=== PATIENT | female | born 1990 | race Caucasian/White ===

== ENCOUNTER 2024-01-05 12:40 | Emergency (ER) | payer OTHER, SELFPAY ==
--- NOTE | ~2024-01-05 | US_ITS ---
EXAMINATION: US OBSTETRICAL ULTRASOUND CLINICAL INFORMATION: 5 weeks with heavy vaginal bleeding COMPARISON: None available. LMP: 11/14/2023. Gestational age by maternal dates is 7 weeks 3 days. Estimated date of delivery by maternal dates is 08/20/2024. TECHNIQUE: Only transabdominal imaging was performed. The patient refused endovaginal imaging FINDINGS: A gestational sac is not seen. There is an anteverted uterus measuring 8.1 x 4.2 x 5.9 cm. The endometrium appears normal. No fluid is seen in the endometrial canal. Right ovary measures 2.4 x 1.4 x 1.7 cm and appears normal. Left ovary measures 1.8 x 1.9 x 1.9 cm and appears normal. No free fluid present in the cul-de-sac. US/US OB <= 14 weeks fetus IMPRESSION: No evidence of an intrauterine . There is no fluid in the endometrial canal and no evidence to suggest an ectopic . The exam is limited because of lack of endovaginal access.
--- NOTE | ~2024-01-05 | XR_ITS ---
EXAMINATION: XR LUMBOSACRAL SPINE CLINICAL INFORMATION: Back pain worse on right COMPARISON: None available. TECHNIQUE: Three views of the lumbosacral spine. FINDINGS: The vertebral bodies and posterior elements are normal. The disc spaces are preserved and the vertebral alignment is normal. The paraspinal soft tissues are normal. Surgical clips in the upper abdomen XR/XR lumbar spine 2-3V IMPRESSION: Unremarkable examination.
--- NOTE | 2024-01-05 12:43 | ECG_ITS ---
Test Reason : chest pain Blood Pressure : / mmHG Vent. Rate : 064 BPM Atrial Rate : 064 BPM P-R Int : 150 ms QRS Dur : 090 ms QT Int : 404 ms P-R-T Axes : 042 034 019 degrees QTc Int : 416 ms Normal sinus rhythm with sinus arrhythmia Normal ECG No previous ECGs available Referred By: Torrie Forman Electronically Signed By:GONZALO ORLANDO MD
[2024-01-05 12:51] VITALS: BP 161/99; PULSE 76; RESP 18; TEMP 37; O2SAT 99; BMI 32.6
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
[2024-01-05 13:36] LABS: MANUAL DIFF FLAG NO
[2024-01-05 13:39] LABS: Basophils Percent Auto 0.4 % (0-2); Eosinophils Percent Auto 0.8 % (0-4); Hematocrit 36.2 % (37.0-47.0); Hemoglobin 11.8 g/dl (12.0-16.0); Imm Gran Abs Auto 0.02 X10*3/uL (0.00-0.03); Imm Gran Pct Auto 0.4 % (0.0-0.4); Lymphocytes Absolute Auto 1.7 X10*3/uL (1.2-4.9); Lymphocytes Percent Auto 34.8 % (20-40); Mean Corpuscular HGB Conc 32.6 g/dl (31.0-35.0); Mean Corpuscular Hemoglobin 26.6 pg (27.0-33.0); Mean Corpuscular Volume 81.5 fL (80.0-98.0); Mean Platelet Volume 10.3 fL (9.4-12.3); Monocytes Absolute Auto 0.3 X10*3/uL (0.1-1.2); Monocytes Percent Auto 5.9 % (2-11); Neutrophils Absolute Auto 2.8 x10*3/uL (2.0-8.3); Neutrophils Percent Auto 57.7 % (45-73); Platelet Count 338 X10*3/uL (160-400); Red Blood Count 4.44 X10*6/uL (4.20-5.50); Red Cell Distribution Width 13.6 % (11.0-16.0); White Blood Count 4.9 X10*3/uL (4.8-10.8)
[2024-01-05 13:43] LABS: Prothrombin Time 11.8 SEC (11.1-13.3)
[2024-01-05 13:49] LABS: Appearance Urine Clear; Color Urine Yellow; Glucose Urine UA Negative (Negative); Leukocyte Esterase Urine Negative (Negative); Nitrite Urine Negative (Negative); PH 7.5 (5.0-9.0); Specific Gravity - Urine 1.015 (1.005-1.025); Urine Blood Negative (Negative); Urine Ketones Negative (Negative); Urine Protein Negative (Neg-Trace)
[2024-01-05 13:50] LABS: UPreg QC Valid YES; Urine Pregnancy NEGATIVE (NEGATIVE)
[2024-01-05 13:54] LABS: Alanine Aminotransferase 9 U/L (0-31); Albumin Level 4.5 g/dL (3.5-5.0); Alkaline Phosphatase 72 U/L (39-117); Anion Gap 11 (12-20); Aspartate Amino Transferase 16 U/L (5-31); Bilirubin Total 0.2 mg/dL (0.0-1.0); Blood Urea Nitrogen 14 mg/dL (9-16); Calcium 9.6 mg/dL (8.4-10.2); Carbon Dioxide 27 mmol/L (22-29); Chloride 106 mmol/L (96-108); Creatinine Clr Calc Pharmacy 120.4; Estimated Glomerular Filt Rate > 60; Glucose Random 74 mg/dL (60-115); Magnesium 2.2 mg/dL (1.6-2.6); Sodium 140 mmol/L (135-145); Total Protein 7.6 g/dL (6.5-8.0)
[2024-01-05 14:01] LABS: HCG Quantitative 4 mIU/mL
[2024-01-05 14:02] LABS: Troponin-I High Sensitivity < 2.7 ng/L (<3.5-17.0)
[2024-01-05 20:15] VITALS: BP 156/96; PULSE 60; RESP 20; TEMP 36.6; O2SAT 98
[2024-01-05] MEDS: Ketorolac Tromethamine 30 MG/ML VIAL IM (21:39)
[2024-01-05] MEDS: predniSONE 20 MG TABLET 40 MG PO (21:40)
[2024-01-05] MEDS: Cyclobenzaprine HCl 10 MG TABLET PO (21:40)
[2024-01-05 23:04] VITALS: BP 135/70; PULSE 63; RESP 18; TEMP 37.2; O2SAT 98
[2024-01-05 23:10] VITALS: BP 0/0; PULSE 0; RESP 0; TEMP -17.7; TEMP 0; O2SAT 0
== END 2024-01-05 23:12 | disposition home or self-care (01) ==
PROVIDERS: Physician Assistant Medical; Emergency Provider Emergency Medicine; PCP Internal Medicine
DX: Z04.1 Encounter for examination and observation following transport accident (principal); M54.16 Radiculopathy, lumbar region; M54.50 Low back pain, unspecified; R07.9 Chest pain, unspecified; N93.9 Abnormal uterine and vaginal bleeding, unspecified; Z32.02 Encounter for pregnancy test, result negative
CPT/HCPCS: 36415; 72100; 76801; 80053; 81003; 81025; 83735; 84484; 84702; 85025; 85610; 93005; 99285; J1885

== ENCOUNTER → 2024-01-05 12:43 | Outpatient (BNV) | payer OTHER, SELFPAY | PROVIDERS: Emergency Provider Emergency Medicine; PCP Internal Medicine; Visit Provider Internal Medicine Cardiovascular Disease | DX: I49.9 Cardiac arrhythmia, unspecified (principal) | CPT/HCPCS: 93010 ==

== ENCOUNTER 2024-05-17 22:27 | Emergency (ER) | payer OTHER, SELFPAY ==
--- NOTE | 2024-05-17 | ECG_ITS ---
Test Reason : CP Blood Pressure : / mmHG Vent. Rate : 066 BPM Atrial Rate : 066 BPM P-R Int : 150 ms QRS Dur : 092 ms QT Int : 400 ms P-R-T Axes : 045 038 025 degrees QTc Int : 419 ms Normal sinus rhythm Normal ECG When compared with ECG of 05-JAN-2024 12:44, No significant change was found Referred By: Generic ED Physician Electronically Signed By:ABIOLA ANTONIO
[2024-05-17 22:40] VITALS: BP 142/88; PULSE 67; RESP 18; TEMP 36.9; O2SAT 98; BMI 33.1
--- NOTE | 2024-05-17 22:40 | MHC.EDTECH ---
Patient brought into triage area,EKG taken per order and signed by provider,labs drawn and sent to lab.
[2024-05-17 22:46] LABS: MANUAL DIFF FLAG NO
[2024-05-17 22:48] LABS: Basophils Percent Auto 0.2 % (0-2); Eosinophils Absolute Auto 0.2 X10*3/uL (0.0-0.4); Hematocrit 34.7 % (37.0-47.0); Hemoglobin 11.3 g/dl (12.0-16.0); Imm Gran Abs Auto 0.01 X10*3/uL (0.00-0.03); Imm Gran Pct Auto 0.2 % (0.0-0.4); Lymphocytes Absolute Auto 1.9 X10*3/uL (1.2-4.9); Lymphocytes Percent Auto 32.7 % (20-40); Mean Corpuscular HGB Conc 32.6 g/dl (31.0-35.0); Mean Corpuscular Hemoglobin 25.6 pg (27.0-33.0); Mean Corpuscular Volume 78.5 fL (80.0-98.0); Monocytes Absolute Auto 0.5 X10*3/uL (0.1-1.2); Monocytes Percent Auto 8.8 % (2-11); Neutrophils Absolute Auto 3.2 x10*3/uL (2.0-8.3); Neutrophils Percent Auto 54.1 % (45-73); Platelet Count 350 X10*3/uL (160-400); Red Blood Count 4.42 X10*6/uL (4.20-5.50); Red Cell Distribution Width 13.9 % (11.0-16.0); White Blood Count 5.8 X10*3/uL (4.8-10.8)
--- NOTE | 2024-05-17 22:51 | ED.GENADULT ---
HPI - General Adult General Chief complaint: General Medical Stated complaint: Chest pain Time Seen by Provider: 05/17/24 22:51 Source: patient Mode of arrival: ambulatory Limitations: no limitations History of Present Illness ED Provider: HPI narrative: Patient with multiple complaints complains of itching all over the body for several months been seen by camper assembler had the lab workup done pending also complaining of palpitation episode lasting only for few minutes also been feeling tired patient denied any depression denied any sleeping problem but patient's drinks increased amount of caffeine no acute medical complaints at this time Related Data Previous Rx's ?Medication ?Instructions ?Recorded cyclobenzaprine 5 mg tablet 5 mg PO TID PRN muscle spasm #10 01/05/24 tabs lidocaine 5 % topical patch 1 patch topical DAILY #15 ea 01/05/24 prednisone 20 mg tablet 40 mg (2 x 20 mg) PO DAILY #8 tabs 01/05/24 montelukast 10 mg tablet 10 mg PO BEDTIME #30 tabs 05/17/24 (Singulair) Allergies Allergy/AdvReac Type Severity Reaction Status Date / Time No Known Allergies Allergy Verified 05/17/24 22:50 Review of Systems Review of Systems: Yes all other systems are reviewed and are negative PMFSH Social History Social History Smoked in Last 30 Days: No Use of substances other than those prescribed or required for medical reasons: Yes Advance Directives: No Advance Directives Information Provided: Yes Physical Exam ED Vital Signs: Vital Signs - 24 hr 05/17/24 22:40 05/17/24 22:58 05/18/24 00:15 Temperature 98.4 F 97.6 F 97.6 F Pulse Rate 67 68 68 Respiratory Rate 18 16 16 Blood Pressure 142/88 H 162/87 H 162/87 H Pulse Oximetry 98 100 100 Oxygen Delivery Method Room Air Room Air Room Air BMI result Body Mass Index 33.1 Appearance: Alert. Oriented X3. No acute distress. Eyes: PERRLA, No Nystagmus ENT: Pharynx normal. Oral Mucosa moist Neck: Normal inspection. Neck supple. CVS: Normal heart rate and rhythm. Pulses normal. Respiratory: No respiratory distress. Equal air entry bilateral, no wheezing/rales/rhonchi Abdomen: Soft and nontender. Bowel sounds are present, no mass palpable, no CVA tenderness Skin: Skin warm and dry. Normal skin color. Normal skin turgor. Extremities: No lower extremity edema. No calf tenderness Neuro: Oriented X 3. No motor deficit. No sensory deficit.No cerebellar signs , cranial nerves II-XII intact Medical Decision Making Lab Data 05/17/24 22:39 05/17/24 22:39 Labs: Lab Results 05/17/24 Range/Units 22:39 WBC 5.8 (4.8-10.8) X10*3/uL RBC 4.42 (4.20-5.50) X10*6/uL Hgb 11.3 L (12.0-16.0) g/dl Hct 34.7 L (37.0-47.0) % MCV 78.5 L (80.0-98.0) fL MCH 25.6 L (27.0-33.0) pg MCHC 32.6 (31.0-35.0) g/dl RDW 13.9 (11.0-16.0) % Plt Count 350 (160-400) X10*3/uL MPV 10.0 (9.4-12.3) fL Immature Gran % (Auto) 0.2 (0.0-0.4) % Neut % (Auto) 54.1 (45-73) % Lymph % (Auto) 32.7 (20-40) % [place] % (Auto) 8.8 (2-11) % Eos % (Auto) 4.0 (0-4) % Baso % (Auto) 0.2 (0-2) % Lymph # (Auto) 1.9 (1.2-4.9) X10*3/uL [place] # (Auto) 0.5 (0.1-1.2) X10*3/uL Eos # (Auto) 0.2 (0.0-0.4) X10*3/uL Baso # (Auto) 0.0 (0.0-0.2) X10*3/uL Abs Immat Gran (auto) 0.01 (0.00-0.03) X10*3/uL Absolute Neuts (auto) 3.2 (2.0-8.3) x10*3/uL Absolute Nucleated RBC 0.000 (0.0-0.012) X10*3/uL Nucleated RBC % (auto) 0.0 (0.0-0.2) /100WBC Sodium 140 (135-145) mmol/L Potassium 4.0 (3.3-5.1) mmol/L Chloride 110 H (96-108) mmol/L Carbon Dioxide 23 (22-29) mmol/L Anion Gap 11 L (12-20) BUN 19 H (9-16) mg/dL Creatinine 0.76 (0.5-1.4) mg/dL Estim Creat Clear Calc 112.7 Estimated GFR > 60 Fasting Glucose 89 (60-99) mg/dL Calcium 8.9 D (8.4-10.2) mg/dL Total Bilirubin 0.2 (0.0-1.0) mg/dL AST 17 (5-31) U/L ALT 13 (0-31) U/L Alkaline Phosphatase 64 (39-117) U/L Troponin I High Sens < 2.7 (<3.5-17.0) ng/L Total Protein 7.4 (6.5-8.0) g/dL Albumin 4.1 (3.5-5.0) g/dL TSH 2.19 (0.32-4.0) uIU/mL Beta HCG, Quant < 2 mIU/mL Discharge Plan Discharge Clinical Impression: Intrinsic (allergic) eczema, Heart palpitations Patient Disposition: Home, Self-Care Instructions: Heart Palpitations (ED), Eczema (ED) Additional Instructions: Follow up with your camper assembler for further management for your urticarial rash You may start Singulair 10 mg every night to avoid the rash and itching Decreased caffeine intake Follow with your PCP Prescriptions: New montelukast [Singulair] 10 mg tablet 10 mg PO BEDTIME Qty: 30 0RF No Action cyclobenzaprine 5 mg tablet 5 mg PO TID PRN (Reason: muscle spasm) Qty: 10 0RF prednisone 20 mg tablet 40 mg PO DAILY Qty: 8 0RF lidocaine 5 % adhesive patch,medicated 1 patch topical DAILY Qty: 15 0RF Rx Instructions: leave on most painful area for up to 12 hrs Interventions: ED Discharge Assessment Last Done: 05/18/24 00:15 Discharge Date/Time: 05/18/24 00:15 Print Language: Martiniquais
[2024-05-17 22:58] VITALS: BP 162/87; PULSE 68; RESP 16; TEMP 36.4; O2SAT 100
[2024-05-17 23:19] LABS: Alanine Aminotransferase 13 U/L (0-31); Albumin Level 4.1 g/dL (3.5-5.0); Alkaline Phosphatase 64 U/L (39-117); Anion Gap 11 (12-20); Aspartate Amino Transferase 17 U/L (5-31); Bilirubin Total 0.2 mg/dL (0.0-1.0); Blood Urea Nitrogen 19 mg/dL (9-16); Calcium 8.9 mg/dL (8.4-10.2); Carbon Dioxide 23 mmol/L (22-29); Chloride 110 mmol/L (96-108); Creatinine Clr Calc Pharmacy 112.7; Estimated Glomerular Filt Rate > 60; Glucose Fasting 89 mg/dL (60-99); HCG Quantitative < 2 mIU/mL; Sodium 140 mmol/L (135-145); Total Protein 7.4 g/dL (6.5-8.0)
[2024-05-17 23:20] LABS: Troponin-I High Sensitivity < 2.7 ng/L (<3.5-17.0)
[2024-05-18 00:13] LABS: Thyroid Stimulating Hormone 2.19 uIU/mL (0.32-4.0)
[2024-05-18 00:15] VITALS: BP 162/87; PULSE 68; RESP 16; TEMP 36.4; O2SAT 100
== END 2024-05-18 00:15 | disposition home or self-care (01) ==
PROVIDERS: Emergency Provider Internal Medicine
DX: R00.2 Palpitations (principal); L20.84 Intrinsic (allergic) eczema; Z79.899 Other long term (current) drug therapy
CPT/HCPCS: 36415; 80053; 84443; 84484; 84702; 85025; 93005; 99283; 99284

== ENCOUNTER → 2024-05-17 22:33 | Outpatient (BNV) | payer OTHER, SELFPAY | PROVIDERS: Emergency Provider Internal Medicine; Visit Provider Internal Medicine | DX: R07.9 Chest pain, unspecified (principal) | CPT/HCPCS: 93010 ==

== ENCOUNTER 2024-11-12 20:07 | Emergency (ER) | payer OTHER, SELFPAY ==
[2024-11-12 20:12] VITALS: BP 149/87; PULSE 102; RESP 18; TEMP 36.8; O2SAT 98; BMI 33.1
--- NOTE | 2024-11-12 20:14 | ED_ITS ---
[facility] - General Adult General Chief complaint: General Medical Stated complaint: right leg pain, itchy Time Seen by Provider: 11/12/24 20:59 Source: patient Mode of arrival: ambulatory Limitations: no limitations History of Present Illness ED Provider: [facility] narrative: Patient is here today with multiple concerns she is concerned that she has cramping of her right calf, this has been progressively getting worse, she states it wakes her up from sleep, she is not on control medications, no history of PEs, no recent surgeries or prolonged travels reported. Also she has had itchiness all over her body for about 6 months seen a manager marketing sales has had scabies treatment, there is no household infestation reported however. Related Data Previous Rx's ?Medication ?Instructions ?Recorded cyclobenzaprine 5 mg tablet 5 mg PO TID PRN muscle spasm #10 01/05/24 tabs lidocaine 5 % topical patch 1 patch topical DAILY #15 ea 01/05/24 prednisone 20 mg tablet 40 mg (2 x 20 mg) PO DAILY #8 tabs 01/05/24 montelukast 10 mg tablet 10 mg PO BEDTIME #30 tabs 05/17/24 (Singulair) Allergies Allergy/AdvReac Type Severity Reaction Status Date / Time No Known Allergies Allergy Verified 11/12/24 20:14 Review of Systems 2 Constitutional: Constitutional: Reports as per [facility] Social History Social History Advance Directives: No Advance Directives Information Provided: No Physical Exam ED Vital Signs: Vital Signs - 24 hr 11/12/24 20:12 Temperature 98.3 F Pulse Rate 102 H Respiratory Rate 18 Blood Pressure 149/87 H Pulse Oximetry 98 Oxygen Delivery Method Room Air BMI result Body Mass Index 33.1 Const Other: * Gen: ?Overall well-appearing patient * Resp: ?No wheezing rales rhonchi no stridor moving air well * MSK: FROM, strength 5/5 all extremities, there were no edema of the calves, distal pulses intact * Skin: No urticaria, no rashes, few areas of bruising she is not abnormal, no petechiae noted * Neuro: ?Alert and oriented x3, moving upper and lower extremities symmetrically, no obvious facial asymmetry noted Course Course Course Narrative: RME performed by Brittnee Pascal PA-C. Patient is a 34 year old assigned female at presenting to the emergency department with all body itching for which they treated her for scabies and now urticaria but she feels as though the urticaria diagnosis is incorrect. Patient also states that her right lower leg has been bothering her / waking her up randomly over the last few days. Detailed physical exam and review of systems are deferred to the auto driver. Labs ordered. Patient placed back in the waiting room pending room availability and results. Medical Decision Making Medical Decision Making MDM Narrative: Patient does drink caffeine, which can explain her cramps at night, we will discharge with recommendation of magnesium, vitamin-B complexes, skin hydration there is no evidence of ongoing infection, there is no evidence for scabies, no evidence for DVT did not feel further imaging such as ultrasound is indicated. She has a manager marketing sales involved in her care of the skin already. She has finished a course of steroids, medication for scabies she did not specify which ones, and takes Zyrtec occasionally Differential Diagnosis Differential Diagnoses: The differential diagnosis associated with the presentation includes Eczema, scabies, thrombocytopenia, DVT, cellulitis Lab Data 11/12/24 21:22 11/12/24 21:22 Labs: Lab Results 11/12/24 Range/Units 21:22 WBC 5.8 (4.8-10.8) X10*3/uL RBC 4.06 L (4.20-5.50) X10*6/uL Hgb 10.6 L (12.0-16.0) g/dl Hct 32.3 L (37.0-47.0) % MCV 79.6 L (80.0-98.0) fL MCH 26.1 L (27.0-33.0) pg MCHC 32.8 (31.0-35.0) g/dl RDW 13.5 (11.0-16.0) % Plt Count 264 (160-400) X10*3/uL MPV 10.1 (9.4-12.3) fL Immature Gran % (Auto) 0.3 (0.0-0.4) % Neut % (Auto) 65.4 (45-73) % Lymph % (Auto) 18.2 L (20-40) % Ransom % (Auto) 13.1 H (2-11) % Eos % (Auto) 2.8 (0-4) % Baso % (Auto) 0.2 (0-2) % Lymph # (Auto) 1.1 L (1.2-4.9) X10*3/uL Ransom # (Auto) 0.8 (0.1-1.2) X10*3/uL Eos # (Auto) 0.2 (0.0-0.4) X10*3/uL Baso # (Auto) 0.0 (0.0-0.2) X10*3/uL Abs Immat Gran (auto) 0.02 (0.00-0.03) X10*3/uL Absolute Neuts (auto) 3.8 (2.0-8.3) x10*3/uL Absolute Nucleated RBC 0.000 (0.0-0.012) X10*3/uL Nucleated RBC % (auto) 0.0 (0.0-0.2) /100WBC Sodium 140 (135-145) mmol/L Potassium 3.4 (3.3-5.1) mmol/L Chloride 105 (96-108) mmol/L Carbon Dioxide 26 (22-29) mmol/L Anion Gap 12 (12-20) BUN 15 (9-16) mg/dL Creatinine 0.58 (0.5-1.4) mg/dL Estim Creat Clear Calc 146.4 Estimated GFR > 60 Random Glucose 91 (60-115) mg/dL Calcium 9.1 (8.4-10.2) mg/dL Magnesium 1.9 (1.6-2.6) mg/dL Total Bilirubin 0.2 (0.0-1.0) mg/dL AST 20 (5-31) U/L ALT 15 (0-31) U/L Alkaline Phosphatase 63 (39-117) U/L Total Protein 7.3 (6.5-8.0) g/dL Albumin 4.2 (3.5-5.0) g/dL Urine Color Yellow Urine Appearance Clear Urine pH 5.5 (5.0-9.0) Ur Specific [place] >= 1.030 H (1.005-1.025) Urine Protein Trace (Neg-Trace) mg/dL Urine Glucose (UA) Negative (Negative) mg/dL Urine Ketones Trace (Negative) mg/dL Urine Blood Small (1+) H (Negative) Urine Nitrite Negative (Negative) Ur Leukocyte Esterase Negative (Negative) Urine RBC 6-10 H (0-2) /HPF Urine WBC 0-5 (0-5) /HPF Ur Squamous Epith Cells 6-10 (0-2) /HPF Urine Bacteria None Seen (None Seen) Hyaline Casts 0-2 (0-2) /LPF Discharge Plan Discharge Clinical Impression: Calf cramp, Itch of skin, Microcytic anemia Patient Disposition: Home, Self-Care Additional Instructions: As discussed with the you I would cut down on the amount of caffeine you are taking in, give it some time for the cramps to improve and I also recommend 400 mg of magnesium before bedtime, as far as for skin I recommend vitamin B complexes which includes biotin, making sure that you are cutting down on how much milk your drinking because milk sometimes is prone eczematous and causes allergies, sugar, but I recommend picking up Lac-Hydrin skin cream or some of the brain which is specifically a moisturizer. Also do not take showers that are too hot they can dry out the skin and cause itchiness and so your has been maybe right, try taking cooler showers. And as discussed I did not feel your presentation is consistent with a blood clot, or skin infection the, continue follow up with the PCP and manager marketing sales any other issues concerns come back to the ER. Your blood work also revealed what appears to be iron deficiency anemia, I recommend iron supplements. Prescriptions: No Action cyclobenzaprine 5 mg tablet 5 mg PO TID PRN (Reason: muscle spasm) Qty: 10 0RF prednisone 20 mg tablet 40 mg PO DAILY Qty: 8 0RF lidocaine 5 % adhesive patch,medicated 1 patch topical DAILY Qty: 15 0RF Rx Instructions: leave on most painful area for up to 12 hrs montelukast [Singulair] 10 mg tablet 10 mg PO BEDTIME Qty: 30 0RF Print Language: Angolan
--- OUTSIDE RECORDS SUMMARY | 2024-11-12 20:39 | XMS_ITS | Clinical Summary ---
Author Organization [address] Address [address] [place] [phone] Phone Care Team Providers Care Talking Books Library Clerk Name Role Phone Alona Garcia MD Primary Care Provider [phone] Allergies No known active allergies Medications ferrous sulfate 325 mg (65 mg iron) EC tablet Take 1 tablet (325 mg total) by mouth 3 (three) times a day with meals. Do not crush, chew, or split. 90 each 2 07/17/2024 Active cholecalciferol (Vitamin D3) 5,000 Units tablet Take 1 tablet (5,000 Units total) by mouth 1 (one) time each day. Active omega-3 fatty acids-fish oil (Fish OiL Extra Strength) 435-880 mg capsule Take by mouth. Active diphenhydrAMINE (BENADRYL) 25 mg capsule Take by mouth every 6 (six) hours if needed for itching. Active fexofenadine (QUENTIN) 180 mg tablet Take 1 tablet (180 mg total) by mouth 1 (one) time each day if needed (allergies) . 08/07/2024 Active Active Problems Problem Noted Date Diagnosed Date Class 1 obesity without seri ous comorbidity with body mass index (BMI) of 33.0 to 33.9 in adult 04/17/2024 Calculus of cystic duct with cholecystitis 04/05 Overview (04/17/2024): S/p lap rachele 04/17 Subclinical hyperthyroidism 06/04/2013 Encounters Date Type Department Care Team Description 10/23/2024 Telephone Adult Medicine [facility] [address] [place] [phone] Ashley Jackson MA Leg Pain 09/18/2024 Telephone Bariatric Surgery [address] [phone] Katharina Howe PA surgery (surgery) 08/28/2024 2:00 PM EDT Office Visit Bariatric Surgery [address] [phone] Katharina Howe PA Class 1 obesity due to excess calories without serious comorbidity with body mass index (BMI) of 33.0 to 33.9 in adult (Primary Dx) 08/24/2024 9:00 AM EDT Telemedicine Bariatric Surgery [address] [phone] Class 1 obesity without serious comorbidity with body mass index (BMI) of 33.0 to 33.9 in adult, unspecified obesity type (Primary Dx) from Last 3 Months Immunizations Name Administration Dates Next Due DTaP (Infanrix) 6wks to less than 7yo 03/23/1995 ,04/01/1994 [id number] (Pentacel) 2mo to less than 5yo 10/24/1991 Hepatitis B Pediatric (Enger ix B; Recombivax HB) to less than 20 yo 04/29/1996,06/09/1995,03/23/1995 IPV Inactivated polio (Ipol) 6wks and older 02/28,04/01/1994 MMR, measles mumps and rubel la Live (Priorix; M-M-R II) 12mo and older 11/20/2020,04/29/1996,10/24/1991 Td Tetanus diptheria (Tdvax) 7yo and older 09/27 Tdap Tetanus diptheria acell ular pertussis (Boostrix; Adacel) 7yo and older 11/16/2023,07/16/2009 Surgical History Surgery Date Site/Laterality Comments OTHER SURGICAL HISTORY 03/2019 PROCEDURE: LAPAROSCOPIC CHOLECYSTECT APPENDECTOMY 2017 PROCEDURE: DE APPENDECTOMY ABDOMINAL SURGERY 2021 PROCEDURE: HISTORICAL ABDOMINAL SURGERY; COMMENT: gastric sleeve by Dr. Luzma HASSAN ABDOMINOPLASTY 2013 PROCEDURE: HISTORICAL TUMMY TUMELANI Medical History Medical History Date Comments Essential hypertension 06/28/2017 DX:Essent ial hypertension Obesity (BMI 30-39.9) DX:Obesity (BMI 30-39.9) Family History Medical History Relation Name Comments Diabetes Mother Other: lupus Mother Relation Name Status Comments Brother Alive Father Alive Mother Alive Sister Alive Social History Tobacco Use Types Packs/Day Years Used Date Smoking Tobacco: Never Smokeless Tobacco: Never Tobacco Cessation:Counseling Given: Not Answered Alcohol Use Standard Drinks/Week Comments Yes 0 (1 standard drink = 0.6 oz pur e alcohol) Comments Unknown Sex and Gender Information Value Date Recorded Sex Assigned at Female 09/03/2024 9:09 AM EDT Legal Sex Female 2:06 AM EST Gender Identity Female 09/03/2024 9:09 AM EDT Sexual Orientation Not on file Obstetrics History Last Filed Vital Signs Vital Sign Reading Time Taken Comments Blood Pressure 167/115 08/28/2024 2:05 PM EDT Pulse 75 08/28/2024 2:05 PM EDT Temperature 36.3 ??C (97.4 ??F) 08/07/2024 9:48 AM ED T Respiratory Rate 14 08/07/2024 9:48 AM EDT Oxygen Saturation 98% 04/18/2024 9:53 AM EST Inhaled Oxygen Concentration - - Weight 88.7 kg (195 lb 9.6 oz) 08/28/2024 2:05 P M EDT Height 162.6 cm (5' 4 ) 08/28/2024 2:05 PM EDT Body Mass Index 33.57 08/28/2024 2:05 PM EDT Plan of Treatment Upcoming Encounters Date Type Department Care Team (Late st Contact Info) Description 11/21/2024 11:45 AM EDT Office Visit Bariatric Surgery - [place] [address] [facility] [address] [place] [phone] Katharina Howe PA [address] [facility] [address] [place] [address] 01/22/2025 2:30 PM EDT Office Visit Adult Medicine [address] [phone] Juan Awan PA 4 [place] [address] Health Maintenance Due Date Last Done Comments HPV Vaccines (3 - 3-dose series) 06/08/2012 03/16/2012, 01/04/2011 Hepatitis C Screening 05/02/2022 Social Influencers of Health Screening 05/02/2022 Cervical Cancer Screening: Pap Smear 11/25/2022 11/26/2019 COVID-19 Vaccine ( season) 2024 11/23/2021, 02/26/2021, 01/16/2021 Depression Screening 11/15/2024 11/16/2023 Influenza Vaccine (Season Ended) 2025 04/05/2023, 03/23/2022, 03/10/2018, Additional history exists Hypertension/CHF/CAD Annual BMP Blood Test 08/07/2025 08/07/2024, 07/11/2024, 04/14/2023 Cholesterol Screening (Lipid Panel) 07/11/2029 07/11/2024, 02/24/2022 DTaP,Tdap,and Td Vaccines (8 - Td or Tdap) 11/15/2033 11/16/2023, 11/14/2018, 07/16/2009, Additional history exists HIB Vaccines Completed 10/24/1991, 10/24/1991 IPV Vaccines Completed 03/23/1995, 07/1993, 10/24/1991 Hepatitis B Vaccines Completed 04/29/1996, 06/09/1995, 03/23/1995 HIV Screening Completed 07/18/2013 MMR Vaccines Completed 11/20/2020, 05/1995, 10/24/1991 Hepatitis A Vaccines Aged Out No long er eligible based on patient's age to complete this topic Meningococcal ACWY Vaccine Aged Out N o longer eligible based on patient's age to complete this topic Meningococcal B Vaccine Aged Out No l onger eligible based on patient's age to complete this topic Pneumococcal Vaccine: Pediatrics (0 to 5 Years) and At-Risk Patients (6 to 64 Years) Aged Out No longer eligible based on patient's age to complete this topic RSV Immunization Patients Under 20 months Aged Out No longer eligible based on patient's age to complete this topic Varicella Vaccines Aged Out No longer eligible based on patient's age to complete this topic Procedures Procedure Name Priority Date/Time Associated Diagnosis Comments COMPREHENSIVE METABOLIC PANEL Routine 08/07/2024 10:40 AM EDT Other fatigue LIPID PANEL WITH REFLEX TO DIRECT LDL Routine 07/11/2024 10:14 AM EST S/P gastric sleeve procedure DEPRESSION SCREENING Routine 11/16/2023 PAP SMEAR Routine 11/26/2019 HIV SCREENING Routine 07/18/2013 from Last 3 Months or Most Recently Relevant to Health Maintenance Results * Comprehensive metabolic panel (08/07/2024 10:40 AM EDT) Sodium 140 133 - 145 mmol/L LAB CHEMISTRY METHOD 08/07/2024 12:38 PM [facility] Potassium 4.4 3.5 - 5.5 mmol/L LAB CHEMISTRY METHOD 08/07/2024 12:38 PM [facility] Chloride 105 96 - 110 mmol/L LAB CHEMISTRY METHOD 08/07/2024 12:38 PM [facility] CO2 28 21 - 32 mmol/L LAB CHEMISTRY METHOD 08/07/2024 12:38 PM [facility] Anion Gap 7 3 - 11 LAB CHEMISTRY METHOD 08/07/2024 12:38 PM [facility] Glucose 85 70 - 100 mg/dL LAB CHEMISTRY METHOD 08/07/2024 12:38 PM [facility] BUN 18 5 - 25 mg/dL LAB CHEMISTRY METHOD 08/07/2024 12:38 PM [facility] Creatinine 0.72 0.50 - 1.10 mg/dL LAB CHEMISTRY METHOD 08/07/2024 12:38 PM [facility] eGFR 113 >=60 mL/min/1. 73m2 LAB CHEMISTRY METHOD 08/07/2024 12:38 PM [facility] Comment:Calculation based on the??Chronic Kidney Disease Epidemiology Collaboration (CKD-EPI) equation refit??without adjustment for race. BUN/Creatinine Ratio 25.0 LAB CHEMISTRY METHOD 08/07/2024 12:38 PM [facility] Calcium 9.6 8.5 - 10.5 mg/dL LAB CHEMISTRY METHOD 08/07/2024 12:38 PM [facility] AST (SGOT) 20 10 - 42 unit/L LAB CHEMISTRY METHOD 08/07/2024 12:38 PM [facility] ALT (SGPT) 28 10 - 60 unit/L LAB CHEMISTRY METHOD 08/07/2024 12:38 PM [facility] Alkaline Phosphatase 70 42 - 121 unit/L LAB CHEMISTRY METHOD 08/07/2024 12:38 PM [facility] Total Protein 7.9 6.0 - 8.0 g/dL LAB CHEMISTRY METHOD 08/07/2024 12:38 PM [facility] Albumin 3.9 3.2 - 5.0 g/dL LAB CHEMISTRY METHOD 08/07/2024 12:38 PM [facility] Total Bilirubin 0.4 0.0 - 1.4 mg/dL LAB CHEMISTRY METHOD 08/07/2024 12:38 PM [facility] Blood Venous blood specimen / Unknown Venipuncture / Unknown 08/07/2024 10:40 AM EDT 08/07/2024 10:40 AM EDT us Alona Garcia MD LAB BLOOD ORDERABLES Final Resul t [facility] [address] [place] [address], [place] [phone] * Lipid panel with reflex to direct LDL (07/11/2024 10:14 AM EST) Cholesterol 174 0 - 200 mg/dL LAB CHEMISTRY METHOD 07/11/2024 2:42 PM EST [facility] Triglycerides 115 0 - 150 mg/dL LAB CHEMISTRY METHOD 07/11/2024 2:42 PM EST [facility] HDL 74 >=40 mg/dL LAB CHEMISTRY METHOD 07/11/2024 2:42 PM EST [facility] LDL Calculated 77 0 - 100 mg/dL LAB CHEMISTRY METHOD 07/11/2024 2:42 PM EST [facility] VLDL Cholesterol Jay 23 mg/dL LAB CHEMISTRY METHOD 07/11/2024 2:42 PM EST [facility] Non HDL Chol. (LDL+VLDL) 100 <145 mg/dL LAB CHEMISTRY METHOD 07/11/2024 2:42 PM EST [facility] Chol/HDL Ratio 2.4 0.0 - 4.4 LAB CHEMISTRY METHOD 07/11/2024 2:42 PM EST [facility] Blood Venous blood specimen / Unknown Venipuncture / Unknown 07/11/2024 10:14 AM EST 07/11/2024 10:14 AM EST Valentina García MD LAB BLOOD ORDERABLES Fi nal Result [facility] [address] [place] [address], [place] [phone] * Depression Screening (11/16/2023) Pathologist [facility] Depression Screening abstracted Historical Provider HEALTH MAINTENANCE Final Result * Pap Smear (11/26/2019) Pathologist [facility] Pap smear no interpretation , abstracted Historical Provider HEALTH MAINTENANCE Final Result * HIV Screening (07/18/2013) HIV Screening abstracted us Historical Provider HEALTH MAINTENANCE Final Result from Last 3 Months or Most Recently Relevant to Health Maintenance Insurance [facility] Care Teams Talking Books Library Clerk Relationship Specialty Start Date End Date Alona Garcia MD [address] [place] [phone] PCP - General Internal Medicine 02/03/22
[2024-11-12 21:27] LABS: MANUAL DIFF FLAG NO
[2024-11-12 21:29] LABS: Basophils Percent Auto 0.2 % (0-2); Eosinophils Absolute Auto 0.2 X10*3/uL (0.0-0.4); Eosinophils Percent Auto 2.8 % (0-4); Hematocrit 32.3 % (37.0-47.0); Hemoglobin 10.6 g/dl (12.0-16.0); Imm Gran Abs Auto 0.02 X10*3/uL (0.00-0.03); Imm Gran Pct Auto 0.3 % (0.0-0.4); Lymphocytes Absolute Auto 1.1 X10*3/uL (1.2-4.9); Lymphocytes Percent Auto 18.2 % (20-40); Mean Corpuscular HGB Conc 32.8 g/dl (31.0-35.0); Mean Corpuscular Hemoglobin 26.1 pg (27.0-33.0); Mean Corpuscular Volume 79.6 fL (80.0-98.0); Mean Platelet Volume 10.1 fL (9.4-12.3); Monocytes Absolute Auto 0.8 X10*3/uL (0.1-1.2); Monocytes Percent Auto 13.1 % (2-11); Neutrophils Absolute Auto 3.8 x10*3/uL (2.0-8.3); Neutrophils Percent Auto 65.4 % (45-73); Platelet Count 264 X10*3/uL (160-400); Red Blood Count 4.06 X10*6/uL (4.20-5.50); Red Cell Distribution Width 13.5 % (11.0-16.0); White Blood Count 5.8 X10*3/uL (4.8-10.8)
[2024-11-12 21:30] LABS: Appearance Urine Clear; Color Urine Yellow; Glucose Urine UA Negative (Negative); Leukocyte Esterase Urine Negative (Negative); Nitrite Urine Negative (Negative); PH 5.5 (5.0-9.0); Specific Gravity - Urine >= 1.030 (1.005-1.025); UMIC TRIGGER UACC YES; Urine Blood Small (1+) (Negative); Urine Ketones Trace mg/dL (Negative); Urine Protein Trace mg/dL (Neg-Trace)
[2024-11-12 21:35] LABS: Bacteria Urine None Seen (None Seen); Hyaline Casts Urine 0-2 /LPF (0-2); WBC Urine 0-5 /HPF (0-5)
[2024-11-12 21:45] LABS: Alanine Aminotransferase 15 U/L (0-31); Albumin Level 4.2 g/dL (3.5-5.0); Alkaline Phosphatase 63 U/L (39-117); Anion Gap 12 (12-20); Aspartate Amino Transferase 20 U/L (5-31); Bilirubin Total 0.2 mg/dL (0.0-1.0); Blood Urea Nitrogen 15 mg/dL (9-16); Calcium 9.1 mg/dL (8.4-10.2); Carbon Dioxide 26 mmol/L (22-29); Chloride 105 mmol/L (96-108); Creatinine Clr Calc Pharmacy 146.4; Estimated Glomerular Filt Rate > 60; Glucose Random 91 mg/dL (60-115); Magnesium 1.9 mg/dL (1.6-2.6); Potassium 3.4 mmol/L (3.3-5.1); Sodium 140 mmol/L (135-145); Total Protein 7.3 g/dL (6.5-8.0)
[2024-11-12 21:54] LABS: HCG Quantitative < 2 mIU/mL
[2024-11-12 22:05] LABS: Influenza A PCR NEGATIVE (Negative); Influenza B PCR NEGATIVE (Negative); Resp Syncy Virus RNA Qual PCR NEGATIVE (Negative); SARS COV2 PCR INHOUSE NEGATIVE (Negative)
[2024-11-12 22:24] VITALS: BP 149/87; PULSE 102; RESP 18; TEMP 36.8; O2SAT 98
== END 2024-11-12 22:26 | disposition home or self-care (01) ==
PROVIDERS: Physician Assistant Medical; Emergency Provider Emergency Medicine
DX: R25.2 Cramp and spasm (principal); L29.9 Pruritus, unspecified; D50.9 Iron deficiency anemia, unspecified; Z03.818 Encounter for observation for suspected exposure to other biological agents ruled out
CPT/HCPCS: 0241U; 36415; 80053; 81001; 83735; 84702; 85025; 99282; 99283

== ENCOUNTER 2025-02-20 20:11 | Emergency (ER) | payer OTHER, SELFPAY ==
--- NOTE | ~2025-02-20 | CT_ITS ---
CLINICAL HISTORY: low back pain CT abdomen and pelvis without contrast Comparison: None provided Findings: CT abdomen: Lung bases are clear. No acute fractures. Ppst-zo-fakjxbdd degenerative disc disease at the lumbosacral junction. No aggressive bony lesions identified. Gallbladder is surgically absent. Postsurgical change of the stomach. No renal calculi identified. There is a questionable 2 mm calculus within the distal right ureter. There is mild prominence of the right ureter and right renal pelvis. No stones are seen within the left ureter. Unenhanced liver, spleen, pancreas, and adrenal glands are unremarkable. No dilated small bowel. CT pelvis: Appendix is surgically absent. No colonic wall thickening or pericolonic inflammatory stranding. Urinary bladder is zwzo-gi-ydipfctpal distended. No bladder calculi. No free fluid or free air. IMPRESSION: 1. Questionable 2 mm calculus within the distal right ureter with mild right hydronephrosis and right hydroureter. 2. Degenerative change of the lumbosacral junction. This document has been electronically signed by: Slick Schaffer MD on 02/21/2025 00:22:03
[2025-02-20 20:13] VITALS: BP 144/85; PULSE 81; RESP 16; TEMP 36.8; O2SAT 95; BMI 34.1
[2025-02-20 20:29] LABS: MANUAL DIFF FLAG NO
[2025-02-20 20:30] LABS: Hematocrit 34.5 % (37.0-47.0); Hemoglobin 11.7 g/dl (12.0-16.0); Imm Gran Abs Auto 0.01 X10*3/uL (0.00-0.03); Imm Gran Pct Auto 0.2 % (0.0-0.4); Lymphocytes Absolute Auto 1.9 X10*3/uL (1.2-4.9); Mean Corpuscular HGB Conc 33.9 g/dl (31.0-35.0); Mean Corpuscular Hemoglobin 26.8 pg (27.0-33.0); Mean Corpuscular Volume 79.1 fL (80.0-98.0); NRBC Abs Auto 0.000 X10*3/uL (0.0-0.012); NRBC Pct Auto 0.0 /100WBC (0.0-0.2); Platelet Count 314 X10*3/uL (160-400); Red Blood Count 4.36 X10*6/uL (4.20-5.50); White Blood Count 6.5 X10*3/uL (4.8-10.8)
--- OUTSIDE RECORDS SUMMARY | 2025-02-20 20:51 | XMS_ITS | Clinical Summary ---
Author Organization [facility] Address [address] [place] [phone] Phone Care Team Providers Care Plasma Specialist Name Role Phone Pcp, Unknown Primary Care Provider Unavailabl e Allergies No known active allergies Medications triamcinolone acetonide 0.1 % cream Apply topically 2 (two) times a day. 30 g 4 Active hydrOXYzine (ATARAX) 25 MG tablet Take 1 tablet (25 mg total) by mouth 3 (three) times a day as needed for itching. 20 tablet 4 Active Immunizations Immunization Administration Dates Next Due COVID-19 (Pre-03/21) Pfizer Vaccine, mRNA, PF 11/23/2021,02/26/2021,01/16/2021 Influenza Quadrivalent Preservative Free IM 02/28 Social History Tobacco Use Types Packs/Day Years Used Date Smoking Tobacco: Never Smokeless Tobacco: Never Tobacco Cessation:Counseling Given: Not Answered Alcohol Use Standard Drinks/Week Comments Not Currently 0 (1 standard drink = 0.6 oz pur e alcohol) Education Answer Date Recorded Are you interested in more education? Not on mary jane e 09/25/2022 Are you concerned about learning? Not on file 09/25/2022 No 09/25/2022 No 09/25/2022 Digital Access Answer Date Recorded No 10/26/2022 No 10/26/2022 Reliable internet access at home? Not on file 10/26/2022 Device with a working camera? Not on file Intimate Partner Violence Answer Date R ecorded Are you denied basic needs s uch as food, clothing, or medical care? No 01/23/2024 In the past 12 months have y ou been in a relationship with a person who hurts, threatens, or tries to control you? No 01/23/2024 Are you denied basic needs s uch as food, clothing, or medical care? No 01/23/2024 In the past 12 months have y ou been in a relationship with a person who hurts, threatens, or tries to control you? No 01/23/2024 Comments Unknown Sex and Gender Information Value Date Recorded Sex Assigned at Female 02/23/2022 10:40 AM EDT Legal Sex Female 3:20 PM EDT Gender Identity Female 02/23/2022 10:40 AM EDT Sexual Orientation Don't know 01/23/2024 8: 41 AM EDT Last Filed Vital Signs Vital Sign Reading Time Taken Comments Blood Pressure 122/88 01/31/2024 8:20 PM EDT Pulse 75 01/31/2024 8:20 PM EDT Temperature 36 C (96.8 F) 01/31/2024 8:20 PM EDT Respiratory Rate 18 01/31/2024 8:20 PM EDT Oxygen Saturation 99% 01/31/2024 8:20 PM EDT Inhaled Oxygen Concentration - - Weight 87.5 kg (193 lb) 01/31/2024 8:20 PM EDT Height 162.6 cm (5' 4 ) 01/31/2024 8:20 PM EDT Body Mass Index 33.13 01/31/2024 8:20 PM EDT Plan of Treatment Health Maintenance Due Date Last Done Comments DEPRESSION SCREENING 2002 HEPATITIS C SCREENING 2008 HIV ONE-TIME SCREENING (18-6 5 YEARS) 2008 PAP SMEAR 2011 INFLUENZA VACCINE (#1) 2024 , 03/10/2018, 03/16/2012 COVID-19 VACCINE (2024-2 6 season) 2025 11/23/2021, 02/26/2021, 01/16/2021 Adult Td,Tdap Booster 11/14/2028 11/14/2018 SMOKING STATUS SCREENING (On ce After 26 Yrs) Completed 01/23/2024 HEPATITIS A VACCINES Aged Out No long er eligible based on patient's age to complete this topic HIB VACCINES Aged Out No longer eligi ble based on patient's age to complete this topic MENINGOCOCCAL VACCINES (ACWY) Aged Out No longer eligible based on patient's age to complete this topic MENINGOCOCCAL VACCINES (B) Aged Out N o longer eligible based on patient's age to complete this topic PNEUMOCOCCAL VACCINES (0-49 years) Aged Out No longer eligible b ased on patient's age to complete this topic Medical Devices Not on file Insurance [employer] [address] [place], [place] [id number] [place] [place] [address] [address] [address] [facility] [place] [address] [place] [address] [employer] [address] [place], [place] [phone] [place] [address] [place] [address] [employer] Care Teams Plasma Specialist Relationship Specialty Start Date End Date Pcp, Unknown PCP - General 01/23/24 Additional Source Comments The information contained in this document represents components of the legal health record. It is not the complete legal health record.[facility]
--- OUTSIDE RECORDS SUMMARY | 2025-02-20 20:51 | XMS_ITS | Encounter Summary ---
Author Organization [facility] Address [address] [place] [address] Care Team Providers Care Adjunct Instructor Name Role Phone Alona Garcia MD Primary Care Provider [phone] Encounter Details Date Type Department Care Team ([facility] st Contact Info) Description 01/18/2025 Telephone Bariatric Surgery - [address] [place] [address] Katharina Howe PA [address] [place] [phone] Social History Tobacco Use Types Packs/Day Years Used Date Smoking Tobacco: Never Smokeless Tobacco: Never Alcohol Use Standard Drinks/Week Comments Yes 0 (1 standard drink = 0.6 oz pur e alcohol) Comments Unknown Sex and Gender Information Value Date Recorded Sex Assigned at Female 09/03/2024 9:09 AM EDT Legal Sex Female 2:06 AM EST Gender Identity Female 09/03/2024 9:09 AM EDT Sexual Orientation Not on file documented as of this encounter Progress Notes * Lucrecia Bach MA - 01/18/2025 12:36 PM EDT Margarito afternoon Katharina . This patient came into office today stating she wants to speak with someone about medication, and need someone to take BP for this is per dr. Posadas request. Her BP was 134/88, Pulse is 77 Patient states she has been taking Phentermine for about two weeks now and she has been having heart palpitations and pressure on her chest. She stated she stopped taking it on this week. She want top know if you can write a letter or create a note stating she tried Phentermine and want tomove along with Zepbound . Once note is create we can send appeal on her behalf for she was already denied for Zepbound and had to try Phentermine. She wants Appeal Expedited. documented in this encounter Plan of Treatment Not on file documented as of this encounter Visit Diagnoses Not on filedocumented in this encounter Care Teams Adjunct Instructor Relationship Specialty Start Date End Date Alona Garcia MD [address] [place] [phone] PCP - General Internal Medicine 02/03/22 documented as of this encounter
--- OUTSIDE RECORDS SUMMARY | 2025-02-20 20:51 | XMS_ITS | Encounter Summary ---
Author Organization [facility] Address [address] [place] [address] Care Team Providers Care Marketing Support Manager Name Role Phone Alona Garcia MD Primary Care Provider [phone] Reason for Visit * Reason Onset Date Comments Advice Only 01/22/2025 Zepbound Encounter Details Date Type Department Care Team ([facility] st Contact Info) Description 01/22/2025 Telephone Bariatric Surgery - [address] [place] [address] Katharina Howe PA [address] [place] [phone] Social History Tobacco Use Types Packs/Day Years [...] as of this encounter Progress Notes * Dania Bush MA - 02/19/2025 2:43 PM EDT This encounter closed - patient has been appealed * Fadumo Huff - 02/14/2025 11:05 AM EDT Patient called to get an update on her appeal. She is asking Carin to give her a call * Fadumo Huff - 02/07/2025 9:41 AM EDT Patient called to let Carin know that her insurance is active. Please give a call to let her know next step * Dania uBsh MA - 01/22/2025 5:21 PM EDT Patient also MyChart messages - we let her know that we are inundated with prior auth requests and short staffed - we are aware and will submit her again as soon as we are able to. * Fadumo Huff - 01/22/2025 12:43 PM EDT Patient came in for BP checks and is wanting to know if she has been resubmitted for Zepbound documented in this encounter Plan of Treatment Not on file documented as of this encounter Visit Diagnoses Not on filedocumented in this encounter Care Teams Marketing Support Manager Relationship Specialty Start Date End Date Alona Garcia MD [address] [place] [phone] PCP - General Internal Medicine 02/03/22 documented as of this encounter
--- OUTSIDE RECORDS SUMMARY | 2025-02-20 20:51 | XMS_ITS | Clinical Summary ---
Author Organization [address] Address [address] [place] [phone] Phone Care Team Providers Care Coal Chute Worker Name Role Phone Alona Garcia MD Primary Care Provider [phone] Allergies No known active allergies Medications ferrous [...] 1 (one) time each day if needed (allergies). 08/07/2024 08/08/19 26 Active tirzepatide, weight loss, (Zepbound) 2.5 mg/0.5 mL injectionIndicat ions:Class 1 obesity due to excess calories without serious comorbidity with body mass index (BMI) of 33.0 to 33.9 in adult Inject 0.5 mL (2.5 mg total) under the skin every 7 (seven) days. 2 mL 11/21/2024 Active phentermine 15 mg capsule Take 1 capsule (15 mg total) by mouth 1 (one) time each day before breakfast. Max Daily Amount: 15 mg 30 each 01/04/2025 Active Active Problems Problem Noted Date Diagnosed Date Hyperthyroidism 11/23/2024 Obesity 11/23/2024 Class 1 obesity 11/23/2024 Abnormal Pap smear of cervix 11/21/2024 GERD (gastroesophageal reflux disease) Gonorrhea 11/21/2024 Maternal chronic hypertension 11/21/2024 Class 1 obesity without seri ous comorbidity with body mass index (BMI) of 33.0 to 33.9 in adult 04/17/2024 Calculus of cystic duct with cholecystitis 04/05 Overview (04/17/2024): S/p lap rachele 04/17 Essential hypertension 06/28/2017 Subclinical hyperthyroidism 06/04/2013 Encounters Date Type Department Care Team Description 01/22/2025 Telephone Bariatric Surgery [address] [phone] Katharina Howe PA 01/18/2025 Telephone Bariatric Surgery [address] [phone] Katharina Howe PA 01/02/2025 Telephone Bariatric Surgery [address] [phone] Katharina Howe PA 11/23/2024 Telephone Bariatric Surgery [address] [phone] Katharina Howe PA 11/22/2024 Telephone Bariatric Surgery [address] [phone] Katharina Howe PA 11/21/2024 11:45 AM EDT Office Visit Bariatric Surgery [address] [phone] Katharina Howe PA Class 1 obesity due to excess calories without serious comorbidity with body mass index (BMI) of 33.0 to 33.9 in adult (Primary Dx) from Last 3 Months Immunizations Name Administration Dates Next Due DTaP (Infanrix) 6wks to less than 7yo 03/23/1995 ,04/01/1994 [id number] (Pentacel) 2mo to less than 5yo 10/24/1991 [...] 03/2019 PROCEDURE: LAPAROSCOPIC CHOLECYSTECT APPENDECTOMY 2017 PROCEDURE: CO APPENDECTOMY ABDOMINAL SURGERY 2021 PROCEDURE: HISTORICAL ABDOMINAL SURGERY; COMMENT: gastric sleeve by Dr. Segla BELT ABDOMINOPLASTY 2013 PROCEDURE: HISTORICAL [facility] Medical History Medical History Date Comments Essential [...] Sign Reading Time Taken Comments Blood Pressure 146/87 11/21/2024 12:02 PM EDT Pulse 72 11/21/2024 12:02 PM EDT Temperature 36.6 C (97.8 F) 11/21/2024 12:02 PM EDT Respiratory Rate 14 08/07/2024 9:48 AM EDT Oxygen Saturation 98% 04/18/2024 9:53 AM EST Inhaled Oxygen Concentration - - Weight 89.8 kg (198 lb) 11/21/2024 12:02 PM EDT Height 162.6 cm (5' 4 ) 11/21/2024 12:02 PM EDT Body Mass Index 33.99 11/21/2024 12:02 PM EDT Plan of Treatment Health Maintenance Due Date Last Done Comments Hepatitis C Screening 05/02/2022 Social Influencers of Health Screening 05/02/2022 Cervical Cancer Screening: Pap Smear 11/25/2022 11/26/2019 Depression Screening 05/30/2024 11/16/2023 COVID-19 Vaccine ( season) 2025 11/23/2021, 02/26/2021, 01/16/2021 Influenza Vaccine (#1) 2025 , 03/23/2022, 03/10/2018, Additional history exists Hypertension/CHF/CAD Annual BMP Blood Test 08/07/2025 08/07/2024, 07/11/2024, 04/14/2023 Cholesterol Screening (Lipid Panel) 07/11/2029 07/11/2024, 02/24/2022 DTaP,Tdap,and Td Vaccines (8 - Td or Tdap) 11/15/2033 11/16/2023, 11/14/2018, 07/16/2009, Additional history exists RSV Immunization Adult Patients (1 - 1-dose 75+ series) 2065 HIB Vaccines Completed 10/24/1991, 10/24/1991 IPV Vaccines Completed 03/23/1995, 07/1993, 10/24/1991 Hepatitis B Vaccines Completed 04/29/1996, 06/09/1995, 03/23/1995 HIV Screening Completed 07/18/2013 MMR Vaccines Completed 11/20/2020, 05/1995, 10/24/1991 HPV Vaccines Completed 09/17/2024, 02/27, 01/04/2011 Hepatitis A Vaccines Aged Out No long er eligible based on patient's age to complete this topic Meningococcal ACWY Vaccine Aged Out N o longer eligible based on patient's age to complete this topic Meningococcal B Vaccine Aged Out No l onger eligible based on patient's age to complete this topic Pneumococcal Vaccine: Pediatrics (0 to 5 Years) and At-Risk Patients (6 to 49 Years) Aged Out No longer eligible based [...] mmol/L LAB CHEMISTRY METHOD 08/07/2024 12:38 PM [facility] Potassium 4.4 3.5 - 5.5 mmol/L LAB CHEMISTRY METHOD 08/07/2024 12:38 PM [facility] Chloride 105 96 - 110 mmol/L LAB CHEMISTRY METHOD 08/07/2024 12:38 PM [facility] CO2 28 21 - 32 mmol/L LAB CHEMISTRY METHOD 08/07/2024 12:38 PM [facility] Anion Gap 7 3 - 11 LAB CHEMISTRY METHOD 08/07/2024 12:38 PM [facility] Glucose 85 70 - 100 mg/dL LAB CHEMISTRY METHOD 08/07/2024 12:38 PM [facility] BUN 18 5 - 25 mg/dL LAB CHEMISTRY METHOD 08/07/2024 12:38 PM [facility] Creatinine 0.72 0.50 - 1.10 mg/dL LAB CHEMISTRY METHOD 08/07/2024 12:38 PM [facility] eGFR 113 >=60 mL/min/1. 73m2 LAB CHEMISTRY METHOD 08/07/2024 12:38 PM [facility] Comment:Calculation based on the Chronic Kidney Disease Epidemiology Collaboration (CKD-EPI) equation refit without adjustment for race. BUN/Creatinine Ratio 25.0 LAB CHEMISTRY METHOD 08/07/2024 12:38 PM [facility] Calcium 9.6 8.5 - 10.5 mg/dL LAB CHEMISTRY METHOD 08/07/2024 12:38 PM [facility] AST (SGOT) 20 10 - 42 unit/L LAB CHEMISTRY METHOD 08/07/2024 12:38 PM [facility] ALT (SGPT) 28 10 - 60 unit/L LAB CHEMISTRY METHOD 08/07/2024 12:38 PM [facility] Alkaline Phosphatase 70 42 - 121 unit/L LAB CHEMISTRY METHOD 08/07/2024 12:38 PM [facility] Total Protein 7.9 6.0 - 8.0 g/dL LAB CHEMISTRY METHOD 08/07/2024 12:38 PM [facility] Albumin 3.9 3.2 - 5.0 g/dL LAB CHEMISTRY METHOD 08/07/2024 12:38 PM [facility] Total Bilirubin 0.4 0.0 - 1.4 mg/dL LAB CHEMISTRY METHOD 08/07/2024 12:38 PM [facility] Blood Venous blood specimen / Unknown Venipuncture / Unknown 08/07/2024 10:40 AM EDT 08/07/2024 10:40 AM EDT Alona Garcia MD LAB BLOOD ORDERABLES Final Resul t [facility] [address] [place] [address], [place] [phone] * Lipid panel with reflex to direct LDL (07/11/2024 10:14 AM EST) Cholesterol 174 0 - 200 mg/dL LAB CHEMISTRY METHOD 07/11/2024 2:42 PM EST [facility] Triglycerides 115 0 - 150 mg/dL LAB CHEMISTRY METHOD 07/11/2024 2:42 PM EST [facility] HDL 74 >=40 mg/dL LAB CHEMISTRY METHOD 07/11/2024 2:42 PM EST [facility] LDL Calculated 77 0 - 100 mg/dL LAB CHEMISTRY METHOD 07/11/2024 2:42 PM EST [facility] VLDL Cholesterol Jay 23 mg/dL LAB CHEMISTRY METHOD 07/11/2024 2:42 PM EST [facility] Non HDL Chol. (LDL+VLDL) 100 <145 mg/dL LAB CHEMISTRY METHOD 07/11/2024 2:42 PM EST [facility] Chol/HDL Ratio 2.4 0.0 - 4.4 LAB CHEMISTRY METHOD 07/11/2024 2:42 PM EST [facility] Blood Venous blood specimen / Unknown Venipuncture / Unknown 07/11/2024 10:14 AM EST 07/11/2024 10:14 AM EST Valentina García MD LAB BLOOD ORDERABLES Fi nal Result [facility] [address] [place] [address], [place] [phone] * Depression Screening (11/16/2023) Depression Screening abstracted Historical Provider HEALTH MAINTENANCE Final Result * Pap Smear (11/26/2019) Pap smear no interpretation , abstracted Historical Provider HEALTH MAINTENANCE Final Result * HIV Screening (07/18/2013) HIV Screening abstracted Historical Provider HEALTH MAINTENANCE Final Result from Last 3 Months or Most Recently Relevant to Health Maintenance Insurance [facility] [employer] Care Teams Coal Chute Worker Relationship Specialty Start Date End Date Alona Garcia MD [address] [place] [phone] PCP - General Internal Medicine 02/03/22
--- OUTSIDE RECORDS SUMMARY | 2025-02-20 20:51 | XMS_ITS ---
Author Name [facility] Organization Unknown Care Team Organization Name Specialty Phone Email Start Date End Da te [facility] Alona Garcia Primary Care 08/04/2022 024 [facility] Darshana Frye Primary Care 04/06/20222023
[2025-02-20 20:59] LABS: Alanine Aminotransferase 17 U/L (0-31); Albumin Level 4.3 g/dL (3.5-5.0); Alkaline Phosphatase 78 U/L (39-117); Anion Gap 11 (12-20); Aspartate Amino Transferase 20 U/L (5-31); Blood Urea Nitrogen 15 mg/dL (9-16); Calcium 8.8 mg/dL (8.4-10.2); Carbon Dioxide 25 mmol/L (22-29); Chloride 108 mmol/L (96-108); Creatinine Clr Calc Pharmacy 107.7; Estimated Glomerular Filt Rate > 60; Potassium 3.6 mmol/L (3.3-5.1); Sodium 140 mmol/L (135-145); Total Protein 7.0 g/dL (6.5-8.0)
[2025-02-20 21:07] LABS: Appearance Urine Clear; Glucose Urine UA Negative (Negative); PH 5.5 (5.0-9.0); Specific Gravity - Urine 1.025 (1.005-1.025); UMIC TRIGGER UACC YES
--- NOTE | 2025-02-20 21:15 | PC.NURSE ---
Pt here w/ c/o watery diarrhea x few days, foul smelling, denies dysuria, nausea and low back pain radiating to both flanks.
--- NOTE | 2025-02-20 22:08 | ED.GENADULT ---
HPI - General Adult General Chief complaint: Back Pain/Injury Stated complaint: abd + back pain,diarrhea,spotting Time Seen by Provider: 02/20/25 22:01 Source: patient Mode of arrival: ambulatory Limitations: no limitations History of Present Illness ED Provider: Dr. Bermeo [facility] narrative: 34-year-old female presented hospital today for lower back pain, diarrhea, nausea for the past couple of days. She has also noticed some vaginal spotting. Last menstrual cycle was roughly 01/27/2025. Patient stated that her diarrhea is watery in nature. Appears to be foul-smelling. History of cholecystectomy in the past. Denies any abnormal vaginal discharge. Related Data Previous Rx's ?Medication ?Instructions ?Recorded cyclobenzaprine 5 mg tablet 5 mg PO TID PRN muscle spasm #10 01/05/24 tabs lidocaine 5 % topical patch 1 patch topical DAILY #15 ea 01/05/24 prednisone 20 mg tablet 40 mg (2 x 20 mg) PO DAILY #8 tabs 01/05/24 montelukast 10 mg tablet 10 mg PO BEDTIME #30 tabs 05/17/24 (Singulair) metronidazole 500 mg tablet 500 mg PO BID 7 days #14 tabs 02/21/25 oxycodone 5 mg capsule 5 mg PO Q8H PRN pain 4 days #14 02/21/25 caps tamsulosin 0.4 mg capsule 0.4 mg PO BEDTIME 14 days #14 caps 02/21/25 Allergies Allergy/AdvReac Type Severity Reaction Status Date / Time No Known Allergies Allergy Verified 02/20/25 20:16 Review of Systems Review of Systems: Pertinent review of systems as mentioned in HPI. All other system otherwise negative. [facility] Past Medical History [facility] Narrative: Medical history as mentioned in HPI Social History Social History Smoked in Last 30 Days: No Use of substances other than those prescribed or required for medical reasons: No Advance Directives: No Advance Directives Information Provided: No Physical Exam ED Exam Exam: General: Pleasant, no distress, interacting appropriately Head: Normacephalic, atraumatic ENT: oral mucosa moist, neck supple, no tracheal deviation Cardiovascular: regular rate, regular rhythm, no murmurs, rubbing, gallops Respiratory: CTAB, no wheeze, rales, rhonchi Gastrointestinal: Soft, non distended, diffuse tenderness on exam, no CVA tenderness on percussion Extremities: No limb pain or swelling, no calf tenderness Neurological: Awake and alert, no facial droop noted Skin: Warm and dry Psychiatric: Appropriate mood and thoughts Vital Signs: Vital Signs - 24 hr 02/20/25 20:13 02/20/25 23:35 02/21/25 00:45 Temperature 98.2 F 98.7 F Pulse Rate 81 88 Respiratory Rate 16 17 17 Blood Pressure 144/85 H 130/79 Pulse Oximetry 95 95 Oxygen Delivery Method Room Air Room Air BMI result Body Mass Index 34.1 Medications Administered Discontinued Medications Generic Name Dose Route Start Last Admin Trade Name Freq PRN Reason Stop Dose Admin Famotidine 20 mg 02/20/25 22:26 02/20/25 22:41 Famotidine/Pf 20 Mg/2 Ml Vial IVPUSH 02/20/25 22:27 20 mg ONCE ONE Administration Sodium Chloride 1,000 mls @ 999 mls/hr 02/20/25 22:30 02/20/25 23:36 Ns IV 02/20/25 23:30 Infused .Q1H1M LEXIE Infusion Ketorolac Tromethamine 15 mg 02/20/25 22:24 02/20/25 22:41 Ketorolac Tromethamine 15 Mg/Ml Vial IVPUSH 02/20/25 22:25 15 mg ONCE ONE Administration Morphine Sulfate 4 mg 02/20/25 23:22 02/20/25 23:35 Morphine Sulfate 4 Mg/Ml Cartridge IVPUSH 02/20/25 23:23 4 mg ONCE ONE Administration Protocol Ondansetron HCl 4 mg 02/20/25 22:26 02/20/25 22:41 Ondansetron Hcl 4 Mg/2 Ml Vial IVPUSH 02/20/25 22:27 4 mg ONCE ONE Administration Tamsulosin HCl 0.4 mg 02/21/25 00:28 02/21/25 00:45 Tamsulosin Hcl 0.4 Mg Capsule PO 02/21/25 00:29 0.4 mg ONCE ONE Administration Medical Decision Making Medical Decision Making MDM Narrative: 34-year-old female presented hospital today for lower abdominal pain that radiates to the back. Also diarrhea. Based on patient's physical exam she has nonspecific abdominal findings. I suspect this is likely colitis. We will plan to give patient IV Toradol, IV fluid IV Zofran for her symptoms. Once her symptom is controlled we will plan to challenge her with a GI cocktail. Review her lab work. She is not . She does not have ectopic . No sign of UTI I do not think this is pyelonephritis or UTI for the patient. Lab work did not show any signs of leukocytosis no sign of electrolyte abnormality. We will plan to treat patient symptomatically at this time. I did consider obtain a CT abdomen and pelvis. However her findings are nonspecific I have low suspicion for acute surgical abdomen. We will pain persisted. Did give her some IV morphine, CT imaging will be obtained as well. CT imaging shows a 2 mm right-sided nephrolithiasis. She will panel is pending at this time with a plan to start patient on metronidazole of for her chronic diarrhea to treat for possible Giardia. Patient stated her symptom has improved some. We will plan to discharge patient with some tamsulosin oxycodone. Follow up with Urology will be provided for nephrolithiasis. She agrees and understands this plan. All questions were addressed. Differential Diagnosis Differential Diagnoses: The differential diagnosis associated with the presentation includes Gastritis, enteritis, colitis Lab Data MDM Lab Attestation statement: I reviewed the patient's lab results. 02/20/25 20:25 02/20/25 20:25 Labs: Lab Results 02/20/25 02/20/25 Range/Units 20:25 20:59 WBC 6.5 (4.8-10.8) X10*3/uL RBC 4.36 (4.20-5.50) X10*6/uL Hgb 11.7 L (12.0-16.0) g/dl Hct 34.5 L (37.0-47.0) % MCV 79.1 L (80.0-98.0) fL MCH 26.8 L (27.0-33.0) pg MCHC 33.9 (31.0-35.0) g/dl RDW 13.3 (11.0-16.0) % Plt Count 314 (160-400) X10*3/uL MPV 9.8 (9.4-12.3) fL Immature Gran % (Auto) 0.2 (0.0-0.4) % Neut % (Auto) 61.9 (45-73) % Lymph % (Auto) 29.3 (20-40) % [place] % (Auto) 6.7 (2-11) % Eos % (Auto) 1.7 (0-4) % Baso % (Auto) 0.2 (0-2) % Lymph # (Auto) 1.9 (1.2-4.9) X10*3/uL [place] # (Auto) 0.4 (0.1-1.2) X10*3/uL Eos # (Auto) 0.1 (0.0-0.4) X10*3/uL Baso # (Auto) 0.0 (0.0-0.2) X10*3/uL Abs Immat Gran (auto) 0.01 (0.00-0.03) X10*3/uL Absolute Neuts (auto) 4.0 (2.0-8.3) x10*3/uL Absolute Nucleated RBC 0.000 (0.0-0.012) X10*3/uL Nucleated RBC % (auto) 0.0 (0.0-0.2) /100WBC Sodium 140 (135-145) mmol/L Potassium 3.6 (3.3-5.1) mmol/L Chloride 108 (96-108) mmol/L Carbon Dioxide 25 (22-29) mmol/L Anion Gap 11 L (12-20) BUN 15 (9-16) mg/dL Creatinine 0.80 (0.5-1.4) mg/dL Estim Creat Clear Calc 107.7 Estimated GFR > 60 Random Glucose 130 H (60-115) mg/dL Calcium 8.8 (8.4-10.2) mg/dL Total Bilirubin 0.1 (0.0-1.0) mg/dL AST 20 (5-31) U/L ALT 17 (0-31) U/L Alkaline Phosphatase 78 (39-117) U/L Total Protein 7.0 (6.5-8.0) g/dL Albumin 4.3 (3.5-5.0) g/dL Beta HCG, Quant < 2 mIU/mL Urine Color Yellow Urine Appearance Clear Urine pH 5.5 (5.0-9.0) Ur Specific [place] 1.025 (1.005-1.025) Urine Protein Negative (Neg-Trace) mg/dL Urine Glucose (UA) Negative (Negative) mg/dL Urine Ketones Trace (Negative) mg/dL Urine Blood Large (3+) H (Negative) Urine Nitrite Negative (Negative) Ur Leukocyte Esterase Negative (Negative) Urine RBC 0-2 (0-2) /HPF Urine WBC 0-5 (0-5) /HPF Ur Squamous Epith Cells 3-5 (0-2) /HPF Urine Bacteria None Seen (None Seen) Hyaline Casts 0-2 (0-2) /LPF Independent Interpretation I performed an independent interpretation of an: CT Scan Radiology Impression Discussion of test interpretation with radiology: I have reviewed the radiologist's reading. Discharge Plan Discharge Clinical Impression: Nephrolithiasis Patient Disposition: Home, Self-Care Instructions: Kidney Stones (ED) Prescriptions: New metronidazole 500 mg tablet 500 mg PO BID 7 Days Qty: 14 0RF tamsulosin 0.4 mg capsule 0.4 mg PO BEDTIME 14 Days Qty: 14 0RF oxycodone 5 mg capsule 5 mg PO Q8H PRN (Reason: pain) 4 Days Qty: 14 0RF Rx Instructions: Partial Fill upon patient request. No Action cyclobenzaprine 5 mg tablet 5 mg PO TID PRN (Reason: muscle spasm) Qty: 10 0RF prednisone 20 mg tablet 40 mg PO DAILY Qty: 8 0RF lidocaine 5 % adhesive patch,medicated 1 patch topical DAILY Qty: 15 0RF Rx Instructions: leave on most painful area for up to 12 hrs montelukast [Singulair] 10 mg tablet 10 mg PO BEDTIME Qty: 30 0RF Referrals: [facility] [Provider Group, Urology] Print Language: Guamanian
--- NOTE | 2025-02-20 23:00 | PC.NURSE ---
this rn assumed care of pt, pt resting in stretcher, iv fluids administering at this time, lights off. vss
[2025-02-20 23:35] VITALS: RESP 17
--- NOTE | 2025-02-20 23:43 | PC.NURSE ---
pt reporting 8 lower back pain, MD Bermeo aware, medicated per mar
[2025-02-21 00:45] VITALS: BP 130/79; PULSE 88; RESP 17; TEMP 37.1; O2SAT 95
[2025-02-21 03:03] VITALS: BP 138/87; PULSE 80; RESP 18; TEMP 36.8; O2SAT 98
[2025-02-21 03:04] VITALS: BP 138/87; PULSE 80; RESP 18; TEMP 36.8; O2SAT 98
[2025-02-21 08:06] LABS: E. coli EAEC Not Detected (Not Detect.); E. coli EPEC Detected (Not Detect.); E. coli ETEC Not Detected (Not Detect.); E. coli STEC Not Detected (Not Detect.); Shigella sp./EIEC Not Detected (Not Detect.)
== END 2025-02-21 03:25 | disposition home or self-care (01) ==
PROVIDERS: Emergency Provider Student in an Organized Health Care Education/Training Program
DX: N20.0 Calculus of kidney (principal); Z87.19 Personal history of other diseases of the digestive system; Z79.899 Other long term (current) drug therapy; Z90.49 Acquired absence of other specified parts of digestive tract
CPT/HCPCS: 36415; 74176; 80053; 81001; 84702; 85025; 87507; 96361; 96374; 96375; 99284; 99285; J1308; J1885; J2270; J2405

== ENCOUNTER → 2025-02-20 23:22 | Outpatient (BNV) | payer OTHER, SELFPAY | PROVIDERS: Emergency Provider Student in an Organized Health Care Education/Training Program; Visit Provider Radiology Diagnostic Radiology | DX: M51.370 Other intervertebral disc degeneration, lumbosacral region with discogenic back pain only (principal); N13.4 Hydroureter; N13.2 Hydronephrosis with renal and ureteral calculous obstruction | CPT/HCPCS: 74176 ==

== ENCOUNTER 2025-02-21 23:20 | Emergency (ER) | payer OTHER, SELFPAY ==
[2025-02-21 23:26] VITALS: BP 139/78; PULSE 81; RESP 16; TEMP 36.3; O2SAT 98; BMI 33.8
--- OUTSIDE RECORDS SUMMARY | 2025-02-22 00:13 | XMS_ITS | Clinical Summary ---
Author Organization [facility] Address [address] [place] [phone] Phone Care Team Providers Care Dredge Engineer Name Role Phone Pcp, Unknown Primary Care [...] topic Medical Devices Not on file Insurance [employer] [address] [address] [place], [place] [id number] [employer] [place] [address] [place] [address] [facility] [address] [place] [address] [employer] A[employer] Y [employer] [address] [place], [place] [id number] [place] [address] [place] [address] [employer] Care Teams Dredge Engineer Relationship Specialty Start Date End Date Pcp, Unknown PCP - General 01/23/24 Additional Source Comments The information contained in this document represents components of the legal health record. It is not the complete legal health record.[facility]
--- OUTSIDE RECORDS SUMMARY | 2025-02-22 00:13 | XMS_ITS | Clinical Summary ---
Author Organization [address] Address [address] [place] [phone] Phone Care Team Providers Care Microsoft Windows Engineer Name Role Phone Alona Garcia MD Primary Care Provider [phone] Allergies No known active allergies Medications ferrous [...] Care Team Description 01/22/2025 Telephone Bariatric Surgery [address] [phone] Katharina Howe PA 01/18/2025 [facility] [address] [phone] Katharina Howe PA 01/02/2025 [facility] [address] [phone] Katharina Howe PA 11/23/2024 [facility] [address] [phone] Katharina Howe PA 11/22/2024 Telephone Bariatric Surgery [address] [phone] Katharina Howe PA from Last 3 Months Immunizations Name Administration Dates Next Due DTaP (Infanrix) 6wks to less than 7yo 03/23/1995 ,04/01/1994 [id number] (Pentacel) 2mo to less than 5yo 10/24/1991 [...] 03/2019 PROCEDURE: LAPAROSCOPIC CHOLECYSTECT APPENDECTOMY 2017 PROCEDURE: LA APPENDECTOMY ABDOMINAL SURGERY 2021 PROCEDURE: HISTORICAL ABDOMINAL SURGERY; COMMENT: gastric sleeve by Dr. Segal BELT ABDOMINOPLASTY 2013 PROCEDURE: HISTORICAL TUMMY TUCK Medical History Medical History Date Comments Essential [...] mmol/L LAB CHEMISTRY METHOD 08/07/2024 12:38 PM [facility] Potassium 4.4 3.5 - 5.5 mmol/L LAB CHEMISTRY METHOD 08/07/2024 12:38 PM [facility] Chloride 105 96 - 110 mmol/L LAB CHEMISTRY METHOD 08/07/2024 12:38 PM [facility] CO2 28 21 - 32 mmol/L LAB CHEMISTRY METHOD 08/07/2024 12:38 PM [facility] Anion Gap 7 3 - 11 LAB CHEMISTRY METHOD 08/07/2024 12:38 PM [facility] Glucose 85 70 - 100 mg/dL LAB CHEMISTRY METHOD 08/07/2024 12:38 PM [facility] BUN 18 5 - 25 mg/dL LAB CHEMISTRY METHOD 08/07/2024 12:38 PM [facility] Creatinine 0.72 0.50 - 1.10 mg/dL LAB CHEMISTRY METHOD 08/07/2024 12:38 PM [facility] eGFR 113 >=60 mL/min/1. 73m2 LAB CHEMISTRY METHOD 08/07/2024 12:38 PM EDT [facility] Comment:Calculation based on the Chronic Kidney Disease Epidemiology Collaboration (CKD-EPI) equation refit without adjustment for race. BUN/Creatinine Ratio 25.0 LAB CHEMISTRY METHOD 08/07/2024 12:38 PM EDT [facility] Calcium 9.6 8.5 - 10.5 mg/dL LAB CHEMISTRY METHOD 08/07/2024 12:38 PM T [facility] AST (SGOT) 20 10 - 42 unit/L LAB CHEMISTRY METHOD 08/07/2024 12:38 PM [facility] ALT (SGPT) 28 10 - 60 unit/L LAB CHEMISTRY METHOD 08/07/2024 12:38 PM [facility] Alkaline Phosphatase 70 42 - 121 unit/L LAB CHEMISTRY METHOD 08/07/2024 12:38 PM [facility] Total Protein 7.9 6.0 - 8.0 g/dL LAB CHEMISTRY METHOD 08/07/2024 12:38 PM [facility] Albumin 3.9 3.2 - 5.0 g/dL LAB CHEMISTRY METHOD 08/07/2024 12:38 PM [facility] Total Bilirubin 0.4 0.0 - 1.4 mg/dL LAB CHEMISTRY METHOD 08/07/2024 12:38 PM [facility] Blood Venous blood specimen / Unknown Venipuncture / Unknown 08/07/2024 10:40 AM EDT 08/07/2024 10:40 AM EDT us Alona Garcia MD LAB BLOOD ORDERABLES Final Resul t [facility] [address] [place] [address], * Lipid panel with reflex to direct LDL (07/11/2024 10:14 AM EST) Cholesterol 174 0 - 200 mg/dL LAB CHEMISTRY METHOD 07/11/2024 2:42 PM EST [facility] Triglycerides 115 0 - 150 mg/dL LAB CHEMISTRY METHOD 07/11/2024 2:[address] [facility] HDL 74 >=40 mg/dL LAB CHEMISTRY METHOD 07/11/2024 2:42 PM EST [facility] LDL Calculated 77 0 - 100 mg/dL LAB CHEMISTRY METHOD 07/11/2024 2:[address] [facility] VLDL Cholesterol Jay 23 mg/dL LAB CHEMISTRY METHOD 07/11/2024 2:[address] [facility] Non HDL Chol. (LDL+VLDL) 100 <145 mg/dL LAB CHEMISTRY METHOD 07/11/2024 2:[address] [facility] Chol/HDL Ratio 2.4 0.0 - 4.4 LAB CHEMISTRY METHOD 07/11/2024 2:[address] [facility] Blood Venous blood specimen / Unknown Venipuncture / Unknown 07/11/2024 10:14 AM EST 07/11/2024 10:14 AM EST Valentina García MD LAB BLOOD ORDERABLES Fi nal Result [facility] [address] [place] [address], * Depression Screening (11/16/2023) Pathologist [facility] Depression Screening abstracted us Historical Provider HEALTH MAINTENANCE Final Result * Pap Smear (11/26/2019) Pathologist [facility] Pap smear no interpretation , abstracted us Historical Provider HEALTH MAINTENANCE Final Result * HIV Screening (07/18/2013) Pathologist [facility] HIV Screening abstracted us Historical Provider HEALTH MAINTENANCE Final Result from Last 3 Months or Most Recently Relevant to Health Maintenance Insurance [facility] Care Teams Microsoft Windows Engineer Relationship Specialty Start Date End Date Alona Garcia MD [address] [place] [phone] PCP - General Internal Medicine 02/03/22
--- OUTSIDE RECORDS SUMMARY | 2025-02-22 00:13 | XMS_ITS | Encounter Summary ---
Author Organization [facility] Address [address] [place] [address] Care Team Providers Care Meat Team Lead Name Role Phone Alona Garcia MD Primary Care Provider [phone] Encounter Details Date Type Department Care Team ([facility] st Contact Info) Description 01/18/2025 Telephone Bariatric Surgery - [address] [place] [address] Katharina Howe PA [address] [place] [phone] Social History Tobacco Use Types Packs/Day Years [...] on filedocumented in this encounter Care Teams Meat Team Lead Relationship Specialty Start Date End Date Alona Garcia MD [address] [place] [phone] PCP - General Internal Medicine 02/03/22 documented as of this encounter
--- NOTE | 2025-02-22 00:50 | ED.GENADULT ---
[facility] - General Adult General Chief complaint: Neck Pain/Injury Stated complaint: General Medical Time Seen by Provider: 02/22/25 00:33 Source: patient Mode of arrival: ambulatory Limitations: no limitations History of Present Illness ED Provider: Dr. Bermeo [facility] narrative: This is a 34-year-old female presented hospital today for right-sided face and neck pain. Patient stated that she recently attempted to take Flagyl however vomited every dose of Flagyl. Patient was contacted by provider here today stating that she was positive for his stool sample. Patient was positive for vibrio, Ecoli Yersenia infection. Patient is complaining of some nausea associated with this. Related Data Previous Rx's ?Medication ?Instructions ?Recorded cyclobenzaprine 5 mg tablet 5 mg PO TID PRN muscle spasm #10 01/05/24 tabs lidocaine 5 % topical patch 1 patch topical DAILY #15 ea 01/05/24 prednisone 20 mg tablet 40 mg (2 x 20 mg) PO DAILY #8 tabs 01/05/24 montelukast 10 mg tablet 10 mg PO BEDTIME #30 tabs 05/17/24 (Singulair) doxycycline hyclate 100 mg capsule 300 mg (3 x 100 mg) PO ONCE #3 caps 02/21/25 metronidazole 500 mg tablet 500 mg PO BID 7 days #14 tabs 02/21/25 oxycodone 5 mg capsule 5 mg PO Q8H PRN pain 4 days #14 02/21/25 caps tamsulosin 0.4 mg capsule 0.4 mg PO BEDTIME 14 days #14 caps 02/21/25 ciprofloxacin HCl 500 mg tablet 500 mg PO Q12H 7 days #14 tabs 02/22/25 ondansetron 4 mg disintegrating 4 mg PO Q8H PRN nausea and 02/22/25 tablet vomiting #14 tabs Allergies Allergy/AdvReac Type Severity Reaction Status Date / Time No Known Allergies Allergy Verified 02/21/25 23:34 Review of Systems Review of Systems: Pertinent review of systems as mentioned in [facility]. All other system otherwise negative. [facility] Past Medical History [facility] Narrative: Medical history as mentioned in [facility] Social History Social History Smoked in Last 30 Days: No Use of substances other than those prescribed or required for medical reasons: No Advance Directives: No Advance Directives Information Provided: Yes Do you have a plan to hurt others: No Plan Physical Exam ED Exam Exam: General: Pleasant, no distress, interacting appropriately Head: Normacephalic, atraumatic ENT: oral mucosa moist, neck supple, no tracheal deviation, TM membrane appears to be clear. There is some fluid behind the right TM membrane. No erythema Gastrointestinal: Soft, non distended, non tender, non guarding Neurological: Awake and alert, no facial droop noted Skin: Warm and dry Psychiatric: Appropriate mood and thoughts Vital Signs: Vital Signs - 24 hr 02/21/25 23:26 02/22/25 01:54 Temperature 97.4 F 98.0 F Pulse Rate 81 72 Respiratory Rate 16 Blood Pressure 139/78 107/58 L Pulse Oximetry 98 97 Oxygen Delivery Method Room Air Room Air BMI result Body Mass Index 33.8 Medications Administered Discontinued Medications Generic Name Dose Route Start Last Admin Trade Name Freq PRN Reason Stop Dose Admin Cyclobenzaprine HCl 5 mg 02/22/25 00:54 02/22/25 01:27 Cyclobenzaprine Hcl 5 Mg Tablet PO 02/22/25 00:55 5 mg ONCE ONE Administration Ciprofloxacin 400 mg in 200 mls @ 200 mls/hr 02/22/25 00:36 02/22/25 02:48 Cipro IV 02/22/25 01:35 Infused ONCE ONE Infusion Lidocaine 1 patch 02/22/25 00:54 02/22/25 01:27 Lidocaine 4 % Patch Adh..Patch TRANSDERMA 02/22/25 00:55 1 patch ONCE ONE Administration Protocol Ondansetron HCl 4 mg 02/22/25 00:40 02/22/25 01:27 Ondansetron Hcl 4 Mg/2 Ml Vial IVPUSH 02/22/25 00:41 4 mg ONCE ONE Administration Medical Decision Making Medical Decision Making MDM Narrative: 34-year-old female presented hospital today for evaluation of right-sided neck pain. We will plan to give patient has some lidocaine patch, we will plan to start patient on some IV ciprofloxacin. We will transition to ciprofloxacin for antibiotic coverage. Plan to give patient some IV Zofran reassess patient. Reassessment the patient is getting better. We will plan to discharge patient on ciprofloxacin course. Patient is agreement with this plan. Patient will be discharged home. Differential Diagnosis Differential Diagnoses: The differential diagnosis associated with the presentation includes Infectious diarrhea, dehydration, nausea, vomiting Lab Data [facility] Lab Attestation statement: I reviewed the patient's lab results. Prior lab results yesterday External Record Review External record reviewed: Outpatient record and Prior outpatient radiology Prescription Management I considered prescription management with: Antibiotic Discharge Plan Discharge Clinical Impression: Acute infectious diarrhea Patient Disposition: Home, Self-Care Instructions: Acute Diarrhea (ED) Prescriptions: New ondansetron 4 mg tablet,disintegrating 4 mg PO Q8H PRN (Reason: nausea and vomiting) Qty: 14 0RF ciprofloxacin HCl 500 mg tablet 500 mg PO Q12H 7 Days Qty: 14 0RF No Action cyclobenzaprine 5 mg tablet 5 mg PO TID PRN (Reason: muscle spasm) Qty: 10 0RF prednisone 20 mg tablet 40 mg PO DAILY Qty: 8 0RF lidocaine 5 % adhesive patch,medicated 1 patch topical DAILY Qty: 15 0RF Rx Instructions: leave on most painful area for up to 12 hrs montelukast [Singulair] 10 mg tablet 10 mg PO BEDTIME Qty: 30 0RF metronidazole 500 mg tablet 500 mg PO BID 7 Days Qty: 14 0RF tamsulosin 0.4 mg capsule 0.4 mg PO BEDTIME 14 Days Qty: 14 0RF oxycodone 5 mg capsule 5 mg PO Q8H PRN (Reason: pain) 4 Days Qty: 14 0RF Rx Instructions: Partial Fill upon patient request. doxycycline hyclate 100 mg capsule 300 mg PO ONCE Qty: 3 0RF Print Language: Amharic
[2025-02-22] MEDS: Lidocaine 4 % Patch ADH..PATCH 1 PATCH TRANSDERMA (01:27)
--- NOTE | 2025-02-22 01:41 | PC.NURSE ---
pt medicated per mar.
[2025-02-22 01:54] VITALS: BP 107/58; PULSE 72; TEMP 36.7; O2SAT 97
--- NOTE | 2025-02-22 02:51 | PC.NURSE ---
pt reports improvement, IV removed, reviewed discharge instructions with pt, pt verbalized understanding, no sign of distress upon discharge.
[2025-02-22 02:52] VITALS: BP 107/58; PULSE 72; RESP 20; TEMP 36.7; O2SAT 97
== END 2025-02-22 02:53 | disposition home or self-care (01) ==
PROVIDERS: Emergency Provider Student in an Organized Health Care Education/Training Program
DX: A09 Infectious gastroenteritis and colitis, unspecified (principal)
CPT/HCPCS: 96365; 96375; 99284; 99285; J0744; J2405